=== PATIENT | female | born 1965 | race Caucasian/White ===

== ENCOUNTER 2018-10-22 06:14 | Day surgery (SDC) | payer MEDICAID ==
[2018-10-14 15:04] LABS: BASOPHILS % (AUTO) 0.4 % (0-1); EOSINOPHILS # (AUTO) 0.1 X10'3 (0-0.9); EOSINOPHILS % (AUTO) 2.1 % (0-6); LYMPHOCYTES # (AUTO) 2.6 X10'3 (1.1-4.8); LYMPHOCYTES % (AUTO) 42.2 % (21-51); MEAN CORPUSCULAR HEMOGLOBIN 28.7 PG (27.0-31.0); MEAN CORPUSCULAR HGB CONC 33.8 g/dL (33.0-36.5); MEAN CORPUSCULAR VOLUME 85.1 FL (78-98); MEAN PLATELET VOLUME 6.7 FL (7.4-10.4); MONOCYTES # (AUTO) 0.5 X10'3 (0-0.9); MONOCYTES % (AUTO) 8.1 % (2-12); NEUTROPHILS # (AUTO) 2.9 X10'3 (1.8-7.7); NEUTROPHILS % (AUTO) 47.2 % (42-75); PRE OP HEMATOCRIT 40.7 % (35.0-45.0); PRE OP HEMOGLOBIN 13.7 g/dL (12.0-16.0); PRE OP PLATELET COUNT 339 X10'3 (140-440); RED BLOOD COUNT 4.78 X10'6 (4.20-5.60); RED CELL DISTRIBUTION WIDTH 13.5 % (11.5-14.5)
[2018-10-14 15:18] LABS: ALBUMIN 3.4 G/DL (3.4-5.0); ALBUMIN/GLOBULIN RATIO 0.9 (1.1-1.5); ALKALINE PHOSPHATASE 118 IU/L (46-116); BLOOD UREA NITROGEN 12 MG/DL (7-18); BUN/CREATININE RATIO 12.2 (6.6-38.0); CHLORIDE 104 MMOL/L (99-107); CREATININE 0.98 MG/DL (0.40-0.90); PRE OP ALT 62 U/L (30-65); PRE OP ANION GAP 10 (8-16); PRE OP AST 40 U/L (10-37); PRE OP BILIRUB, TOTAL 0.2 MG/DL (0.0-1.0); PRE OP GLUCOSE 111 MG/DL (70-104); PRE OP POTASSIUM 4.2 MMOL/L (3.4-5.1); PRE OP SODIUM 139 MMOL/L (135-145); TOTAL CARBON DIOXIDE 25.3 MMOL/L (24-32); TOTAL PROTEIN 7.3 G/DL (6.4-8.2); eGFR 60 ML/MIN
[2018-10-22] VITALS (8 sets, daily range): BP systolic 90–119; BP diastolic 64–82
[~2018-10-22] VITALS: Ht 167.6 cm; Wt 99.5 kg
[~2018-10-22 06:14] MED LIST: HYDR-3686 PO; LURA60TA2 PO; METH40TA13 PO; clindamycin 600mg/D5W 50ml 50 ML IV ONE; famotidine 20mg tablet PO ONE; ringers solution, lacted 1,000 ML IV SCH
[2018-10-22] MEDS ORDERED: BUPIVAcaine/PF 2.5mg/ml (0.25%) 10ml vial ONE (06:53)
[2018-10-22] MEDS ORDERED: LIDOcaine 0.5% (5mg/ml) 50ml vial ONE (07:27)
[2018-10-22] MEDS ORDERED: ringers solution, lacted 1,000 ML IV SCH (07:29)
[2018-10-22] MEDS ORDERED: labetalol 20mg/4ml (5mg/ml) syringe IV PRN (07:30)
[2018-10-22] MEDS ORDERED: hydrALAZINE 20mg/ml inj. IV PRN (07:30)
[2018-10-22] MEDS ORDERED: morphine 4 MG/ML inj SYRINge IV PRN ×2 (07:30)
[2018-10-22] MEDS ORDERED: ondansetron/PF 4mg/2ml inj IV PRN (07:30)
[2018-10-22] MEDS ORDERED: fentaNYL/PF 50MCG/1 ML 2ML syringe IV PRN ×2 (07:30)
[2018-10-22] MEDS ORDERED: sevoflurane 250ml liquid IH ONE (07:35)
[2018-10-22] MEDS ORDERED: MIDAZolam 1mg/ml 10ml vial ONE (07:40)
[2018-10-22] MEDS ORDERED: fentaNYL/PF 50MCG/1 ML 2ML syringe ONE (07:40)
[2018-10-22] MEDS ORDERED: LIDOcaine 2% (20mg/ml) 5ml vial ONE (08:23)
[2018-10-22] MEDS ORDERED: propofol inj 20 ML IV ONE (08:23)
--- NOTE | 2018-10-22 08:35 | NUR ---
Received from OR via [facility], accompanied by Anesthesiologist DR CISNEROS and report given by Anesthesiologist. PT DROWSY W/ORAL AIRWAY, RIGHT HAND/WRIST W/DRSG CDI, FINGERS PWD, ICE PACK PLACED. Addendum: 10/22/18 at 0852 by Angle Booker RN Amended: Links added.
== END 2018-10-22 09:45 | disposition home or self-care (01) ==
LOC: PAS 06:14
PROVIDERS: ATTEND Orthopaedic Surgery Hand Surgery
DX: G56.01 Carpal tunnel syndrome, right upper limb (principal)
CPT/HCPCS: 29848; 36415; 80053; 85025; 93005; A6449; J2001; J2250; J2704; J3010; J3490; A7000; J7120

== ENCOUNTER 2018-11-26 06:00 | Day surgery (SDC) | payer MEDICAID ==
[~2018-11-26] VITALS: Ht 167.6 cm; Wt 90.7 kg
[2018-11-26] VITALS (8 sets, daily range): BP systolic 90–110; BP diastolic 61–77
--- NOTE | 2018-11-26 08:30 | NUR ---
UNABLE TO OBTAIN IV, DR CABA HERE TRIED ULTRASOUND, STILL UNABLE , WENT TO OR FOR CENTRAL LINE.
[2018-11-26] MEDS ORDERED: sevoflurane 250ml liquid IH ONE (08:38)
[2018-11-26] MEDS ORDERED: fentaNYL/PF 50MCG/1 ML 2ML syringe ONE ×2 (08:42→09:11)
[2018-11-26] MEDS ORDERED: midazolam 2 mg/2 ml injection ONE (08:42)
[2018-11-26] MEDS ORDERED: BUPIVAcaine/PF 2.5mg/ml (0.25%) 10ml vial IJ ONE (09:09)
--- NOTE | 2018-11-26 09:17 | NUR ---
Received from OR via , accompanied by Anesthesiologist ALCON CABA and report given by Anesthesiolgist. UNRESPONSIVE AND HAS ET AIRWAY. IS SPONTAINIOUSLY BREATHING. VITALS STABLE. DRESSING DI. LT FINGERS WARM AND PINK.
[2018-11-26] MEDS ORDERED: LIDOcaine 2% (20mg/ml) 5ml vial ONE (09:31)
[2018-11-26] MEDS ORDERED: propofol inj 20 ML IV ONE (09:31)
[2018-11-26] MEDS ORDERED: ondansetron/PF 4mg/2ml inj ONE (09:31)
--- NOTE | 2018-11-26 09:50 | NUR ---
PT AWAKE AND AIRWAY REMOVED. VITALS STABLE. MELANIE PAIN.
--- NOTE | 2018-11-26 10:05 | NUR ---
CL TO RT NECK REMOVED AFTER CUTTING SUTURE. CATH INTACT AND DRESSING APPLIED. NO BLEEDING NOTED.
--- NOTE | 2018-11-26 10:27 | NUR ---
AWAKE AND ORIENTED. VITALS STABLE. DRESSING DI. MELANIE PAIN. HOME WITH HER SPOUSE AT THHIS TIME.
== END 2018-11-26 10:27 | disposition home or self-care (01) ==
LOC: PAS 06:00 → EDUNIT# 09:00 → PAS 10:27
PROVIDERS: ATTEND Orthopaedic Surgery Hand Surgery
DX: G56.02 Carpal tunnel syndrome, left upper limb (principal); F17.210 Nicotine dependence, cigarettes, uncomplicated; Z90.710 Acquired absence of both cervix and uterus; Z79.899 Other long term (current) drug therapy; Z88.0 Allergy status to penicillin; Z98.890 Other specified postprocedural states
CPT/HCPCS: 29848; 71045; J2001; J2250; J2405; J2704; J3010; J3490; A6449; A7000; J7120